=== PATIENT | male | born 1970 | race African-American/Black ===

== ENCOUNTER 2017-07-11 04:30 | Emergency (ER) | payer SELFPAY ==
[~2017-07-11] VITALS: Ht 188 cm; Wt 140.2 kg
[~2017-07-11 04:30] MED LIST: NAPROXEN500 MG PO; PREDNISONE20 MG PO
[2017-07-11] MEDS ORDERED: MEDROL DOSEPAK4 MG PO (05:31)
[2017-07-11] MEDS ORDERED: FLEXERIL10 MG PO (05:31)
[2017-07-11] MEDS ORDERED: PERCOCET 5/31 TABLET PO (05:31)
[2017-07-11 05:48] VITALS: BP 148/76
== END 2017-07-11 05:49 | disposition home or self-care (01) ==
LOC: EME 04:30
DX: M54.42 Lumbago with sciatica, left side (principal); M54.41 Lumbago with sciatica, right side; G89.29 Other chronic pain; I10 Essential (primary) hypertension; F17.200 Nicotine dependence, unspecified, uncomplicated
CPT/HCPCS: 80048; 84484; 85027; 99281; 99284; J7512